=== PATIENT | female | born 1960 | race Hispanic/Latino ===

== ENCOUNTER → 2018-04-05 | Outpatient (CLI) | payer OTHER | LOC: MAMMO 09:20 | PROVIDERS: ATTEND Internal Medicine | DX: Z12.31 Encounter for screening mammogram for malignant neoplasm of breast (principal) | CPT/HCPCS: 77067 ==

== ENCOUNTER → 2018-10-21 | Outpatient (CLI) | payer OTHER ==
--- NOTE | 2018-10-22 08:29 | Diagnostic Imaging Report ---
#[id number] - USBRECOMRT ULTRASOUND OF THE RIGHT BREAST : 10/21/2018 No prior exams were available for comparison. Color flow and real-time ultrasound were performed on the entire right breast with scaning in all four quadrants, retroareolar region and the right axilla. -At 7 o'clock 1 cm from the nipple there is a benign cyst measuring 2 x 2 x 2 mm. IMPRESSION: BENIGN There is no sonographic evidence of malignancy. A 1 year screening mammogram is recommended. Isael Laird Jr., D.O. cw/:10/21/2018 12:35:42 Music Specialist: SUKI FUNEZ RDMS, [facility] letter sent: Normal Exam Ultrasound BI-RADS: 2 Benign
--- NOTE | 2018-10-22 08:29 | Diagnostic Imaging Report ---
#[id number] - USBRECOMLT ULTRASOUND OF THE LEFT BREAST : 10/21/2018 Comparison is made to exam dated: 04/05/2018 mammogram - [facility]. Color flow and real-time ultrasound were performed on the entire left breast with scanning in all four quadrants, retroareolar region and the left axilla. -At 1 o'clock 2 cm from the nipple there is a benign cyst measuring 3 x 1 x 3 mm. IMPRESSION: BENIGN There is no sonographic evidence of malignancy. A 1 year screening mammogram is recommended. Isael Laird Jr., D.O. cw/:10/21/2018 12:33:04 Associate Professor Of Forestry: SUKI FUNEZ RDMS, [facility] letter sent: Normal Exam Ultrasound BI-RADS: 2 Benign
== END ==
LOC: US 07:37
PROVIDERS: ATTEND Internal Medicine
DX: R92.2 Inconclusive mammogram (principal)